=== PATIENT | female | born 1975 | race Hispanic/Latino ===

== ENCOUNTER 2018-07-18 21:12 | Emergency (ER) | payer OTHER ==
[~2018-07-18] VITALS: Ht 152.4 cm; Wt 73.5 kg
--- OUTSIDE RECORDS SUMMARY | 2018-07-18 21:14 | XMS REPORT ---
[facility] Address Unknown Phone Unavailable Care Team Providers Care Clay Roaster Name Role Phone Unavailable Unavailable Problems This patient has no known problems. Allergies, Adverse Reactions, Alerts This patient has no known allergies or adverse reactions. Medications This patient has no known medications. Results Test Description Test Time Test Comments Text Results Atomic Results Result Comments BREAST ULTRASOUND BILATERAL 2018-04-16 16:56:37 - BREAST ULTRASOUND BILATERALULTRASOUND OF BOTH BREASTS AND BOTH AXILLA: 04/16/2018No prior exams were available for comparison. Real-time ultrasound of both breasts and both axilla was performed. There is a 7 x 4 x 8 mm oval hypoechoic mass without internal vascularity in the parallel orientation in the left breast at 10 o'clock, 8 cm from the nipple. This mass is probably benign. No definitive mammographic correlate is seen.No sonographic correlate is seen for the oval asymmetry in the lateral left breast seen on the CC view on prior mammography.Benign cysts are seen in the right breast. No other significant findings in either breast.No lymphadenopathy is seen in either axilla.IMPRESSION: PROBABLY BENIGN - FOLLOW-UP RECOMMENDED1. Probably benign left breast mass identified on ultrasound at 10 o'clock, 8 cm from the nipple. No definitive mammographic correlate. A follow-up left breast ultrasound in 6 months is recommended to confirm stability.2. Left breast 6 mm asymmetry on the CC view in the lateral region at middle depth, 6 cm from the nipple. No sonographic correlate. A follow-up left breast diagnostic mammogram in 6 months is recommended to confirm stability.3. Previously described left breast asymmetries do not persist, compatible with superimposed breast tissue.4. Benign right breast cysts. No sonographic evidence of malignancy in the right breast.Findings and recommendations were discussed with the patient at the conclusion of the examination today.Johanne del cid/:04/16/2018 16:56:37 Stippler: Nathaly POLANCO, [facility] sent: ort Term Follow Up Ultrasound BI-RADS: 3 Probably benign BREAST ULTRASOUND BILATERAL 2018-04-16 16:56:37 AMENDMENT: 04/30/2018 Johanne Ashley D.O. Prior mammography dating back to 2012 are now available for comparison.With additional imaging, the previously described asymmetry on the CC view in the lateral left breast at middle depth 6 cm from nipple demonstrates no significant change compared to prior mammography. This finding is benign. Therefore the 6 month follow-up left diagnostic mammogram regarding the asymmetry is not needed.Recommendation for an ultrasound follow-up in 6 months of the probably benign left breast mass at 10 o'clock, 8 cm from the nipple, remains the same.Amended BI-RADS: 3 Probably benign letter sent: Short Term Follow Up DIAG MAMM LEFT HANNAH CAD DIGITAL 2018-04-16 16:43:34 - DIAG MAMM LEFT HANNAH CAD DIGITALUNILATERAL LEFT DIGITAL DIAGNOSTIC MAMMOGRAM 3D/2D WITH CAD: 04/16/2018CLINICAL: Recall from screening. Digital breast tomosynthesis was performed in addition to routine CC and MLO views. Current mammographic images were evaluated by either a [employer]-Vu or a [employer] CAD (computer aided detection system). Comparison is made to exam dated 02/20/2018 mammogram - [facility]. The tissue of the left breast is heterogeneously dense. This may lower the sensitivity of mammography. The initially described asymmetries in the lateral left breast on the CC view and posterior central left breast on the MLO view do not persist with additional imaging, compatible with superimposed breast tissue. A biopsy proven benign mass is seen in the upper outer left breast.An oval 6 mm asymmetry persists with additional imaging which is seen in the lateral left breast at middle depth on the Left CC view, 6 cm from the nipple (hannah slice #[id number]).No other significant findings are seen.IMPRESSION: INCOMPLETE ASSESSMENT: ADDITIONAL IMAGING EVALUATION RECOMMENDED1. Previously described asymmetries do not persist with additional imaging, compatible with benign superimposed breast tissue.2. An oval 6 mm asymmetry persists with additional imaging seen in the lateral left breast at middle depth on the CC view, 6 cm from the nipple.3. The patient was subseque ntly taken to ultrasound for further evaluation. Bilateral breast ultrasound was performed due to patient's breast density.Johanne del cid/:04/16/2018 16:43:34 Entry: - 04/23/2018 06:56:49Imaging Technologist: Christiano Ledesma [facility]FWMammogram BI-RADS: 0 Indeterminate SCR MAMM BILATERAL HANNAH CAD DIGITAL 2018-03-11 13:32:47 - SCR MAMM BILATERAL HANNAH CAD DIGITALBILATERAL DIGITAL SCREENING MAMMOGRAM 3D/2D WITH CAD: 02/20/2018CLINICAL: Asymptomatic. Digital breast tomosynthesis was performed in addition to routine CC and MLO views. Current mammographic images were evaluated by either a [employer]Vu or a [employer] CAD (computer aided detection system). No prior exams were available for comparison. The tissue of both breasts is heterogeneously dense. This may lower the sensitivity of mammography. There is a 7 mm asymmetry in the left breast, posterior depth, lateral region seen on the craniocaudal view only, 9 cm from the nipple. There also is a 9 mm asymmetry in the left breast, posterior depth central to the nipple, seen on the mediolateral oblique view only, 8 cm from the nipple. No other significant masses, calcifications, or other findings are seen in either breast. IMPRESSION: INCOMPLETE ASSESSMENT: ADDITIONAL IMAGING EVALUATION RECOMMENDEDThe 7 mm asymmetry in the left breast, posterior depth lateral region, seen on the craniocaudal view only, is indeterminate. Additional views with possible ultrasound are recommended. The 9 mm asymmetry in the left breast, posterior depth central to the nipple, seen on the mediolateral oblique view only, is indeterminate. Additional views with possible ultrasound are recommended. Johanne del cid/:03/11/2018 13:32:47 Stippler: Christiano Whitaker [facility]letter sent: Additional Imaging Mammogram BI-RADS: 0 Indeterminate
[2018-07-18] MEDS ORDERED: NEOMYCIN/POLYMYX/BACITR OINT 0.9 GM PKT ONE (21:25)
[2018-07-18] MEDS ORDERED: BACITRACIN ZINC 0.9GM TP ONE (21:30)
[2018-07-18] MEDS ORDERED: TETANUS/DIPHTHERIA TOX ADULT 0.5 ML SYR IM ONE (21:30)
[2018-07-18] MEDS ORDERED: NEOMYCIN/POLYMYX/BACITR OINT 0.9 GM PKT TOP STA (21:31)
== END 2018-07-18 21:49 | disposition home or self-care (01) ==
LOC: ER 21:12
DX: T23.262A Burn of second degree of back of left hand, initial encounter (principal); T52.0X1A Toxic effect of petroleum products, accidental (unintentional), initial encounter; Y92.008 Other place in unspecified non-institutional (private) residence as the place of occurrence of the external cause
CPT/HCPCS: 90471; 90714; 99283

== ENCOUNTER 2022-09-21 18:27 | Emergency (ER) | payer OTHER ==
[~2022-09-21] VITALS: Ht 152.4 cm; Wt 73.5 kg
[2022-09-21 18:47] VITALS: O2SAT 99
== END 2022-09-21 20:34 | disposition home or self-care (01) ==
LOC: ER 18:32
DX: S96.812A Strain of other specified muscles and tendons at ankle and foot level, left foot, initial encounter (principal); X50.1XXA Overexertion from prolonged static or awkward postures, initial encounter; Y93.01 Activity, walking, marching and hiking; Y92.89 Other specified places as the place of occurrence of the external cause
CPT/HCPCS: 99283